=== PATIENT | male | born 1980 | race Caucasian/White ===

== ENCOUNTER 2019-08-28 02:05 | Emergency (ER) | payer SELFPAY ==
[~2019-08-28] VITALS: Ht 170.2 cm; Wt 59.0 kg
[~2019-08-28 02:05] MED LIST: ATARAX,VISTARIL50 MG PO; CIPROFLOXACIN500 MG PO; CLARITIN10 MG PO; DOLOPHINE5 MG PO; FLEXERIL10 MG PO; HYDROCODONE BIT1 T11 PO; IBU-6600 MG PO; KEFLEX500 MG PO; LORAZEPAM1 MG PO; MEDROL DOSEPAK4 MG PO; MOTRIN800 MG PO; Motrin,Rufen800 MG PO; NAPROSYN500 MG PO; ONDANSETRON HYDR4 M1 PO; OXYCODONE HCL5 MG PO; OXYCODONE5 MG PO; SINEMET 25-100M1 TAB PO; TRAMADOL HCL50 MG PO; ULTRAM50 MG PO; VICODIN 500 MG-1 TAB PO; VOLTAREN75 MG PO
[2019-08-28 04:45] LABS: BASO # 0.1 10*3/uL (0.0-0.1); BASO % 0.4 % (0.0-1.0); EOS # 0.2 10*3/uL (0.0-0.4); HEMATOCRIT 46.7 % (42.0-52.0); LYMPH # 1.9 10*3/uL (1.3-4.4); MEAN CELL VOLUME 95.3 fl (80.0-94.0); MEAN CORPUSCULAR HGB 31.4 pg (27.0-31.0); MEAN PLATELET VOLUME 10.7 fl (9.6-12.3); MONO # 0.9 10*3/uL (0.1-1.0); MONO % 4.9 % (3.0-9.0); NEUT # 15.8 10*3/uL (2.3-7.9); NEUT % 83.3 % (47.0-73.0); PLATELET COUNT AUTOMATED 261 10*3/uL (130-400); RED CELL DISTRI WIDTH 14.1 % (0-14.5)
[2019-08-28 05:03] LABS: ALBUMIN 3.7 gm/dl (3.1-4.5); BUN 13 mg/dl (7-24); CHLORIDE 109 mmol/L (98-107); CREATININE 0.73 mg/dL (0.70-1.30); POTASSIUM 3.5 mmol/L (3.5-5.1); SGOT/AST 60 IU/L (3-35); SODIUM 138 mmol/L (136-145)
[2019-08-28 05:06] LABS: ALKALINE PHOSPHATASE 67 U/L (45-117); SGPT/ALT 47 U/L (12-78); TOTAL PROTEIN 7.3 gm/dL (6.4-8.2)
[2019-08-28 05:19] LABS: ACETAMINOPHEN (TYLENOL) < 5.0 ug/ml (10-30)
[2019-08-28 05:44] VITALS: BP 136/90
== END 2019-08-28 06:23 | disposition short-term general hospital (02) ==
LOC: ED 02:05
PROVIDERS: Emergency Medicine Emergency Medical Services
DX: S12.600A Unspecified displaced fracture of seventh cervical vertebra, initial encounter for closed fracture (principal); F41.9 Anxiety disorder, unspecified; F31.9 Bipolar disorder, unspecified; F17.200 Nicotine dependence, unspecified, uncomplicated; Z88.8 Allergy status to other drugs, medicaments and biological substances; Z79.899 Other long term (current) drug therapy; V86.99XA Unspecified occupant of other special all-terrain or other off-road motor vehicle injured in nontraffic accident, initial encounter; Y93.89 Activity, other specified; Y92.89 Other specified places as the place of occurrence of the external cause; Y99.8 Other external cause status

== ENCOUNTER 2020-06-10 16:22 | Emergency (ER) | payer SELFPAY ==
[~2020-06-10] VITALS: Wt 61.2 kg
[2020-06-10 16:53] VITALS: BP 124/93
== END 2020-06-10 20:12 | disposition left against medical advice (07) ==
LOC: ED 16:22
DX: M79.651 Pain in right thigh (principal); I10 Essential (primary) hypertension; F17.200 Nicotine dependence, unspecified, uncomplicated; Z88.8 Allergy status to other drugs, medicaments and biological substances; Z88.1 Allergy status to other antibiotic agents; Z79.899 Other long term (current) drug therapy; Z96.9 Presence of functional implant, unspecified; V29.49XA Motorcycle driver injured in collision with other motor vehicles in traffic accident, initial encounter; Y93.I9 Activity, other involving external motion; Y92.488 Other paved roadways as the place of occurrence of the external cause; Y99.8 Other external cause status

== ENCOUNTER → 2020-06-15 | Outpatient (CLI) | payer SELFPAY | END | disposition home or self-care (01) | LOC: US 15:08 | PROVIDERS: ATTEND Orthopaedic Surgery | DX: S89.91XA Unspecified injury of right lower leg, initial encounter (principal); X58.XXXA Exposure to other specified factors, initial encounter; Y93.89 Activity, other specified; Y92.89 Other specified places as the place of occurrence of the external cause; Y99.8 Other external cause status ==

== ENCOUNTER 2021-03-29 04:45 | Emergency (ER) | payer SELFPAY ==
[~2021-03-29] VITALS: Ht 170.1 cm; Wt 61.2 kg
[2021-03-29 04:48] VITALS: BP 137/86
== END 2021-03-29 05:00 | disposition left against medical advice (07) ==
LOC: ED 04:45
DX: T40.1X1A Poisoning by heroin, accidental (unintentional), initial encounter (principal); I10 Essential (primary) hypertension; Z98.890 Other specified postprocedural states; Z88.8 Allergy status to other drugs, medicaments and biological substances; Y92.89 Other specified places as the place of occurrence of the external cause

== ENCOUNTER 2021-08-26 23:20 | Emergency (ER) | payer OTHER ==
[~2021-08-26] VITALS: Wt 61.2 kg
[2021-08-26 23:34] VITALS: BP 136/88
== END 2021-08-26 23:50 | disposition home or self-care (01) ==
LOC: ED 23:20
DX: N50.811 Right testicular pain (principal); F17.200 Nicotine dependence, unspecified, uncomplicated; Z88.1 Allergy status to other antibiotic agents

== ENCOUNTER 2021-11-25 08:57 | Emergency (ER) | payer SELFPAY ==
[~2021-11-25] VITALS: Ht 170.1 cm; Wt 61.2 kg
[2021-11-25 10:12] LABS: BASO # 0.1 10*3/uL (0.0-0.1); BASO % 0.8 % (0.0-1.0); EOS # 0.8 10*3/uL (0.0-0.4); EOS % 10.4 % (1.0-4.0); HEMATOCRIT 44.5 % (42.0-52.0); LYMPH # 2.2 10*3/uL (1.3-4.4); LYMPH % 27.5 % (27.0-41.0); MEAN CELL VOLUME 89.9 fl (80.0-94.0); MEAN CORPUSCULAR HGB 29.5 pg (27.0-31.0); MEAN CORPUSCULAR HGB CONC 32.8 g/dl (33.0-37.0); MEAN PLATELET VOLUME 11.7 fl (9.6-12.3); MONO # 0.6 10*3/uL (0.1-1.0); MONO % 7.4 % (3.0-9.0); NEUT # 4.3 10*3/uL (2.3-7.9); NEUT % 53.5 % (47.0-73.0); PLATELET COUNT AUTOMATED 264 10*3/uL (130-400); RED BLOOD COUNT 4.95 10*6/uL (4.50-5.90); RED CELL DISTRI WIDTH 14.9 % (0-14.5)
[2021-11-25 10:32] LABS: ACT PARTIAL THROMBO TIME 23.9 SECONDS (20.0-32.1); INTERNATIONAL NORM RATIO 0.9 (2.0-3.5)
[2021-11-25 10:36] LABS: BUN 21 mg/dl (7-24); CHLORIDE 108 mmol/L (98-107); CREATININE 0.86 mg/dL (0.70-1.30); POTASSIUM 3.5 mmol/L (3.5-5.1); SGOT/AST 93 IU/L (3-35); SODIUM 142 mmol/L (136-145); TOTAL PROTEIN 7.3 gm/dL (6.4-8.2)
[2021-11-25 10:41] LABS: ALKALINE PHOSPHATASE 71 U/L (45-117); ETHYL ALCOHOL < 3.0 mg/dl (<3); SGPT/ALT 205 U/L (12-78)
[2021-11-25 11:49] VITALS: BP 125/71
== END 2021-11-25 13:02 | disposition home or self-care (01) ==
LOC: ED 08:57
PROVIDERS: Emergency Medicine
DX: T40.601A Poisoning by unspecified narcotics, accidental (unintentional), initial encounter (principal); I10 Essential (primary) hypertension; Z88.8 Allergy status to other drugs, medicaments and biological substances; F17.200 Nicotine dependence, unspecified, uncomplicated; Y92.89 Other specified places as the place of occurrence of the external cause

== ENCOUNTER 2022-05-19 17:53 | Emergency (ER) | payer OTHER ==
[~2022-05-19] VITALS: Wt 61.2 kg
[2022-05-19 19:15] LABS: BASO # 0.1 10*3/uL (0.0-0.1); BASO % 0.2 % (0.0-1.0); EOS % 0.2 % (1.0-4.0); HEMATOCRIT 45.8 % (42.0-52.0); LYMPH # 1.8 10*3/uL (1.3-4.4); LYMPH % 8.2 % (27.0-41.0); MEAN CELL VOLUME 90.9 fl (80.0-94.0); MEAN CORPUSCULAR HGB 29.6 pg (27.0-31.0); MEAN CORPUSCULAR HGB CONC 32.5 g/dl (33.0-37.0); MEAN PLATELET VOLUME 10.9 fl (9.6-12.3); MONO # 1.1 10*3/uL (0.1-1.0); NEUT # 19.1 10*3/uL (2.3-7.9); PLATELET COUNT AUTOMATED 295 10*3/uL (130-400); RED BLOOD COUNT 5.04 10*6/uL (4.50-5.90); RED CELL DISTRI WIDTH 13.7 % (0-14.5); WHITE BLOOD COUNT 22.2 10*3/uL (4.8-10.8)
[2022-05-19 19:33] LABS: ALKALINE PHOSPHATASE 78 U/L (46-116); BUN 14 mg/dl (9-23); CHLORIDE 103 mmol/L (98-107); LIPASE 32 U/L (12-53); POTASSIUM 4.5 mmol/L (3.4-5.1); SGPT/ALT 117 U/L (10-49); TOTAL PROTEIN 7.9 gm/dL (6.0-8.0)
[2022-05-19 22:00] VITALS: BP 141/77
[2022-05-20] MEDS ORDERED: LEVOFLOXACIN750 M2 PO (22:00)
== END 2022-05-19 23:20 | disposition left against medical advice (07) ==
LOC: ED 17:53
PROVIDERS: Physician Assistant
DX: A41.9 Sepsis, unspecified organism (principal); J18.8 Other pneumonia, unspecified organism; F41.9 Anxiety disorder, unspecified; F19.10 Other psychoactive substance abuse, uncomplicated; F31.9 Bipolar disorder, unspecified; Z88.8 Allergy status to other drugs, medicaments and biological substances; Z98.890 Other specified postprocedural states; Z87.891 Personal history of nicotine dependence

== ENCOUNTER 2022-05-20 01:26 | Inpatient (IN) | payer OTHER ==
[2022-05-20] VITALS (9 sets, daily range): BP systolic 121–141; BP diastolic 75–86
[~2022-05-20] VITALS: Ht 170.1 cm; Wt 62.6 kg
[2022-05-20 06:23] LABS: MANUAL DIFF REFLEX YES; MEAN CELL VOLUME 90.1 fl (80.0-94.0); MEAN CORPUSCULAR HGB 30.3 pg (27.0-31.0); MEAN CORPUSCULAR HGB CONC 33.6 g/dl (33.0-37.0); MEAN PLATELET VOLUME 11.5 fl (9.6-12.3); PLATELET COUNT AUTOMATED 259 10*3/uL (130-400); RED BLOOD COUNT 4.33 10*6/uL (4.50-5.90); RED CELL DISTRI WIDTH 13.8 % (0-14.5); WHITE BLOOD COUNT 22.1 10*3/uL (4.8-10.8)
[2022-05-20 06:48] LABS: ALKALINE PHOSPHATASE 57 U/L (46-116); BUN 11 mg/dl (9-23); CHLORIDE 104 mmol/L (98-107); SGPT/ALT 77 U/L (10-49); TOTAL PROTEIN 6.3 gm/dL (6.0-8.0)
[2022-05-20 07:11] LABS: POTASSIUM 3.5 mmol/L (3.4-5.1)
[2022-05-20 07:22] LABS: PLATELET SUFFICIENCY NORMAL (NORMAL); POLYCHROMASIA SLIGHT; TOTAL CELLS COUNTED 100 #CELLS
[2022-05-20 08:58] LABS: URINE AMPHETAMINES Negative (1000ng/ml); URINE BARBITURATES Negative (200ng/ml); URINE BENZODIAZEPINES Positive (200ng/ml); URINE CANNABINOIDS (THC) Positive (50ng/ml); URINE COCAINE Positive (300ng/ml); URINE METHADONE Negative (300ng/ml); URINE OPIATES Positive (300ng/ml); URINE PHENCYCLIDINE Negative (25ng/ml)
[2022-05-20] MEDS ORDERED: LEVOFLOXACIN750 M2 PO (22:00)
== END 2022-05-20 22:52 | disposition left against medical advice (07) | DRG 871 ==
LOC: ED 01:26 → EDHOLD 05:19 → 5E 05:19 → EDHOLD 05:30 → 5E 09:09
PROVIDERS: Student in an Organized Health Care Education/Training Program; ADMIT Emergency Medicine; ATTEND Emergency Medicine
PROC: 02HV33Z Insertion of Infusion Device into Superior Vena Cava, Percutaneous Approach (ICD-10-PCS; principal; 2022-05-20)
PROC: B548ZZA Ultrasonography of Superior Vena Cava, Guidance (ICD-10-PCS; 2022-05-20)
DX: A41.9 Sepsis, unspecified organism (principal); J18.9 Pneumonia, unspecified organism; E87.1 Hypo-osmolality and hyponatremia; I10 Essential (primary) hypertension; R73.9 Hyperglycemia, unspecified; R74.01 Elevation of levels of liver transaminase levels; Z79.1 Long term (current) use of non-steroidal anti-inflammatories (NSAID); Z88.8 Allergy status to other drugs, medicaments and biological substances; Z79.899 Other long term (current) drug therapy